=== PATIENT | female | born 1970 | race Caucasian/White ===

== ENCOUNTER 2018-03-18 23:56 | Emergency (ER) | payer SELFPAY ==
[~2018-03-18] VITALS: Ht 162.6 cm; Wt 68.0 kg
[2018-03-18 23:58] VITALS: BP_SYST 143
[2018-03-19] MEDS ORDERED: CEPHALEXIN 500 MG CAPSULE PO ONE (00:30)
[2018-03-19] MEDS ORDERED: CLINDAMYCIN HCL 150 MG CAPSULE PO ONE (00:30)
[2018-03-19] MEDS ORDERED: IBUPROFEN 800 MG TABLET PO ONE (00:30)
[2018-03-19 01:01] VITALS: BP_SYST 138
== END 2018-03-19 01:01 | disposition home or self-care (01) ==
LOC: SED 23:56
DX: L02.414 Cutaneous abscess of left upper limb (principal); I10 Essential (primary) hypertension; Z88.5 Allergy status to narcotic agent
CPT/HCPCS: 99284